=== PATIENT | female | born 1950 | race Caucasian/White ===

== ENCOUNTER 2016-09-29 12:22 | Emergency (ER) | payer OTHER ==
[2016-09-29 12:35] VITALS: BP 152/76
--- NOTE | 2016-09-29 14:21 | UC ---
Back Pain HPI - HPI Summary HPI Summary: The patient comes in today for: 1. Lower left back pain: Onset: 5 days ago. Palliative/provocative: Ibuprofen helped. Rest makes it better. Laying on her side helps. Quality: Sharp. Region: Lower left back. Severity: 4/10 Time: Constant. Associated symptoms: Previous treatment: Ibuprofen, rest, muscle relaxer (from ). Fevers: None. Unexpected weight loss: None. Bladder/bowel disfunction: None. Previous disease: None. Weakness or numbness: * - History of Current Complaint Chief Complaint: UCBackPain Stated Complaint: BACK PAIN Time Seen by Provider: 09/29/16 14:16 Hx Obtained From: Patient Hx Last Menstrual Period: "Years ago." ?: No - Allergies/Home Medications Allergies/Adverse Reactions: Allergies Allergy/AdvReac Type Severity Reaction Status Date / Time No Known Allergies Allergy Verified 08/21/15 12:25 PMH/Surg Hx/FS Hx/Imm Hx Previously Healthy: No Endocrine History Of: Denies: Diabetes, Thyroid Disease, Hyperthyroidism, Hypothyroidism, Dyslipidemia Cardiovascular History Of: Reports: Hypertension Denies: Cardiac Disorders, Pacemaker/ICD, Myocardial Infarction, Congestive Heart Failure, Atrial Fibrillation, Deep Vein Thrombosis, Bleeding Disorders Respiratory History Of: Denies: COPD, Asthma, Bronchitis, Pneumonia, Pulmonary Embolism GI/ History Of: Denies: Gastroesophageal Reflux, Ulcer, Gastrointestinal Bleed, Gall Bladder Disease, Kidney Stones, Diverticulitis, Renal Disease, Urosepsis Neurological History Of: Denies: TIA, CVA, Dementia, Seizures, Migraine Psychological History Of: Denies: Anxiety, Depression, Bipolar Disorder, Schizophrenia, Post Traumatic Stress Disorder Cancer History Of: Reports: Breast Cancer Denies: Lung Cancer, Colorectal Cancer, Prostate Cancer, Cervical Cancer Other History Of: Negative For: HIV, Hepatitis B, Hepatitis C, Anticoagulant Therapy - Surgical History Surgical History: Yes Surgery Procedure, Year, and Place: RIGHT MASTECTOMY - Family History Known Family History: Positive: Cardiac Disease, Hypertension - Social History Occupation: Retired Alcohol Use: Weekly Substance Use Type: None Smoking Status (MU): Never Smoked Tobacco Review of Systems Constitutional: Negative Skin: Negative Eyes: Negative ENT: Negative Respiratory: Negative Cardiovascular: Negative Gastrointestinal: Negative Genitourinary: Negative All Other Systems Reviewed And Are Negative: Yes Physical Exam Triage Information Reviewed: Yes Appearance: Well-Appearing, No Pain Distress - While sitting., Well-Nourished Vital Signs: Initial Vital Signs Temp 97.6 F 09/29/16 12:29 Pulse 61 09/29/16 12:29 Resp 16 09/29/16 12:29 BP 152/76 09/29/16 12:29 Pulse Ox 100 09/29/16 12:29 Vital Signs Reviewed: Yes Eyes: Positive: Conjunctiva Clear. Negative: Discharge ENT: Positive: Hearing grossly normal. Negative: Pharyngeal erythema, Nasal congestion, Nasal drainage, TM bulging, TM dull, TM red, Tonsillar swelling, Tonsillar exudate Dental: Negative: Gross Decay/Caries @, Dental Fracture @ Neck: Positive: Supple, Nontender, No Lymphadenopathy. Negative: Nuchal Rigidity Respiratory: Positive: Chest non-tender, Lungs clear, No respiratory distress, No accessory muscle use. Negative: Crackles, Wheezing Cardiovascular: Positive: RRR, No Murmur Abdomen Description: Positive: Nontender, No Organomegaly, Soft. Negative: Distended, Guarding, Peritoneal Signs, Pulsatile Mass Musculoskeletal: Positive: Other: - BAck: She has good backward extension, and limited forward flexion. There is limited left lateral flexion, and good right lateral flexion. There is no SLR and the DTR of the patellar and Achilles were 2+/2 x 2. There is focal tenderness to the upper left sacrum just inferior to the lumbar spine. Neurological: Positive: Alert, Muscle Tone Normal Psychological: Positive: Age Appropriate Behavior, Consolable Skin: Negative: rashes, breakdown Back Pain Course/Dx - Differential Dx/Diagnosis Provider Diagnoses: Lower left back strain. Discharge - Discharge Plan Condition: Stable Disposition: HOME Patient Education Materials: Low Back Strain (ED) Referrals: Nohemy Mckeon MD [Primary Care Provider] - 1 Week (Please see your primary care provider in a week to see how well you are doing. If you get worse, please be seen sooner in the ER or through us.)
== END 2016-09-29 14:52 | disposition home or self-care (01) ==
LOC: UCEAST 12:22
DX: S39.012A Strain of muscle, fascia and tendon of lower back, initial encounter (principal); X58.XXXA Exposure to other specified factors, initial encounter; Y93.9 Activity, unspecified; Y92.9 Unspecified place or not applicable
CPT/HCPCS: 99212; G0463

== ENCOUNTER 2019-03-21 14:02 | Observation (INO) | payer OTHER ==
[2019-03-21] MEDS ORDERED: Ondansetron INJ* 2 MG/ML VIAL IV ONE (14:49)
[2019-03-21] MEDS ORDERED: NS 0.9% 1000 ML** 1,000 ML IV ONE (14:49)
[2019-03-21] MEDS ORDERED: Meclizine TAB* 12.5 MG PO ONE (14:49)
[2019-03-21 15:23] LABS: ABS Lymphocytes 1.4 10^3/ul (1.0-4.8); ABS Monocytes 0.5 10^3/ul (0-0.8); Eosinophil % 0.1 %; Hematocrit 39 % (35-47); Hemoglobin 13.1 g/dL (12.0-16.0); Lymphocyte % 15.6 %; Mean Corpuscular HGB Conc 34 g/dL (31-36); Mean Corpuscular Hemoglobin 30 pg (27-31); Mean Corpuscular Volume 89 fL (80-97); Mean Platelet Volume 8.7 fL (7.4-10.4); Platelet Count 248 10^3/uL (150-450); Red Blood Count 4.37 10^6 /uL (3.70-4.87); Red Cell Distribution Width 13 % (10-15)
[2019-03-21 15:40] LABS: Albumin 4.5 g/dL (3.2-5.2); Albumin/Globulin Ratio 1.4 (1-3); BUN/Creatinine Ratio 36.2 (8-20); C Reactive Protein 10.21 mg/L (<8.01); Calcium 9.7 mg/dL (8.6-10.3); EGFR African American 101.8 (>60); EGFR Non-African American 84.1 (>60); Globulin 3.2 g/dL (2-4); Magnesium 1.6 mg/dL (1.9-2.7); Total Bilirubin 0.6 mg/dL (0.2-1.0); Total Protein 7.7 g/dL (6.4-8.9)
[2019-03-21 15:40] LABS: Urine Appearance Clear; Urine Bilirubin Negative (Negative); Urine Blood Negative (Negative); Urine Color Yellow; Urine Glucose Negative (Negative); Urine Ketones Trace (Negative); Urine Nitrite Negative (Negative); Urine Protein Negative (Negative); Urine Specific Gravity 1.016 (1.010-1.030); Urine Urobilinogen Negative (Negative)
[2019-03-21 16:02] LABS: TSH (Thyroid Stimulating Horm) 2.22 mcIU/mL (0.34-5.60)
[2019-03-21 16:05] LABS: Urine Benzodiazepine Screen None Detected (None Detect); Urine Opiates Screen None Detected (None Detect)
--- NOTE | 2019-03-21 16:24 | ED ---
Dizziness - HPI Summary HPI Summary: The patient is a 68 y/o F presenting to [facility] with a chief complaint of gradual onset dizziness starting a week ago. She states that previous to the dizziness starting, she had a URI that has resolved with dizziness that has persisted since. The dizziness occurs mostly with turning of the head to the right and sometimes to the left. She notes that she has hx of vertigo. Her symptoms are currently rated 4/10 in severity. She additionally c/o nausea without vomiting and slight nasal congestion. She denies headache, CP, palpitations, and SOB. Hx of HTN, rheumatoid arthritis. FHx of cardiac disease, HTN. Nonsmoker, weekly EtOH, no substance use. - History Of Current Complaint Chief Complaint: EDDizziness Stated Complaint: POSSIBLE VIRTIGO, WEAKNESS Time Seen by Provider: 03/21/19 14:36 Hx Obtained From: Patient Onset/Duration: Still Present, Gradually Timing: Days - one week Severity Initially: Mild Severity Currently: Moderate Character: Dizzy Aggravating Factor(s): Other - turning head from side to side especially on right Alleviating Factor(s): Rest Associated Signs And Symptoms: Positive: Nausea, Other: - POSITIVE: nasal congestion; NEGATIVE: headache. Negative: Vomiting, Chest Pain, SOB, Palpitations - Allergies/Home Medications Allergies/Adverse Reactions: Allergies Allergy/AdvReac Type Severity Reaction Status Date / Time No Known Allergies Allergy Verified 03/21/19 14:10 PMH/Surg Hx/FS Hx/Imm Hx Endocrine/Hematology History: Denies: Hx Anticoagulant Therapy, Hx Diabetes, Hx Thyroid Disease Cardiovascular History: Reports: Hx Hypertension Denies: Hx Congestive Heart Failure, Hx Deep Vein Thrombosis, Hx Hypercholesterolemia, Hx Myocardial Infarction, Hx Pacemaker/ICD Respiratory History: Denies: Hx Asthma, Hx Chronic Obstructive Pulmonary Disease (COPD), Hx Lung Cancer, Hx Pneumonia, Hx Pulmonary Embolism GI History: Denies: Hx Gall Bladder Disease, Hx Gastrointestinal Bleed, Hx Ulcer, Hx Urosepsis History: Denies: Hx Kidney Stones, Hx Renal Disease Musculoskeletal History: Reports: Hx Rheumatoid Arthritis Neurological History: Reports: Other Neuro Impairments/Disorders - vertigo Denies: Hx Dementia, Hx Migraine, Hx Seizures, Hx Transient Ischemic Attacks (TIA) Psychiatric History: Denies: Hx Anxiety, Hx Depression, Hx Schizophrenia, Hx Bipolar Disorder - Cancer History Cancer Type, Location and Year: BREAST CA, RECONSTRUCTIVE SURGERY Hx Chemotherapy: Yes - BREAST Hx Radiation Therapy: No - Surgical History Surgery Procedure, Year, and Place: RIGHT MASTECTOMY - Immunization History Immunizations Up to Date: Yes Infectious Disease History: No Infectious Disease History: Denies: Traveled Outside the [place] in Last 30 Days - Family History Known Family History: Positive: Cardiac Disease, Hypertension - Social History Alcohol Use: Weekly Hx Substance Use: No Substance Use Type: Reports: None Hx Tobacco Use: No Smoking Status (MU): Never Smoked Tobacco Do You Chew or Dip Tobacco: No Have You Chewed or Dipped Tobacco in the LAST YEAR: No Have You Smoked in the Last Year: No Review of Systems Positive: Other - nasal congestion Negative: Palpitations, Chest Pain Negative: Shortness Of Breath Positive: Nausea. Negative: Vomiting Neurological: Other - dizziness Negative: Headache All Other Systems Reviewed And Are Negative: Yes Physical Exam - Summary Physical Exam Summary: VITAL SIGNS: Reviewed. GENERAL: Patient is a well-developed and nourished female who is lying comfortable in the stretcher. Patient is not in any acute respiratory distress. HEAD AND FACE: No signs of trauma. No ecchymosis, hematomas or skull depressions. No sinus tenderness. EYES: PERRLA, EOMI x 2, No injected conjunctiva. Nystagmus is unable to be assessed because patient reports that if she attempts to follow my finger with her eyes, she will develop a migraine headache. EARS: Hearing grossly intact. Ear canals and tympanic membranes are within normal limits. MOUTH: Oropharynx within normal limits. NECK: Supple, trachea is midline, no adenopathy, no JVD, no carotid bruit, no c- spine tenderness, neck with full ROM. CHEST: Symmetric, no tenderness at palpation. LUNGS: Clear to auscultation bilaterally. No wheezing or crackles. CVS: Regular rate and rhythm, S1 and S2 present, no murmurs or gallops appreciated. ABDOMEN: Soft, non-tender. No signs of distention. No rebound, no guarding, and no masses palpated. Bowel sounds are normal. EXTREMITIES: FROM in all major joints, no edema, no cyanosis or clubbing. NEURO: Alert and oriented x 3. No acute neurological deficits. Speech is normal and follows commands. SKIN: Dry and warm. GCS: 15. Triage Information Reviewed: Yes Vital Signs On Initial Exam: Initial Vitals Temp Pulse Resp BP Pulse Ox 98.0 F 66 16 198/78 100 03/21/19 14:03 03/21/19 14:03 03/21/19 14:03 03/21/19 14:03 03/21/19 14:03 Vital Signs Reviewed: Yes - Yuly Coma Scale Best Eye Response: 4 - Spontaneous Best Motor Response: 6 - Obeys Commands Best Verbal Response: 5 - Oriented Coma Scale Total: 15 Diagnostics - Vital Signs Vital Signs Temp Pulse Resp BP Pulse Ox 03/21/19 14:03 98.0 F 66 16 198/78 100 - Laboratory Lab Results: Lab Results 03/21/19 03/21/19 03/21/19 Range/Units 15:08 15:08 15:08 WBC 9.0 (3.5-10.8) 10^3/uL RBC 4.37 (3.70-4.87) 10^6 /uL Hgb 13.1 (12.0-16.0) g/dL Hct 39 (35-47) % MCV 89 (80-97) fL MCH 30 (27-31) pg MCHC 34 (31-36) g/dL RDW 13 (10-15) % Plt Count 248 (150-450) 10^3/uL MPV 8.7 (7.4-10.4) fL Neut % (Auto) 78.1 % Lymph % (Auto) 15.6 % [place] % (Auto) 5.9 % Eos % (Auto) 0.1 % Baso % (Auto) 0.3 % Absolute Neuts (auto) 7.0 (1.5-7.7) 10^3/ul Absolute Lymphs (auto) 1.4 (1.0-4.8) 10^3/ul Absolute Monos (auto) 0.5 (0-0.8) 10^3/ul Absolute Eos (auto) 0.0 (0-0.6) 10^3/ul Absolute Basos (auto) 0.0 (0-0.2) 10^3/ul Absolute Nucleated RBC 0.0 10^3/ul Nucleated RBC % 0.0 Sodium 122 L (135-145) mmol/L Potassium 4.0 (3.5-5.0) mmol/L Chloride 90 L (101-111) mmol/L Carbon Dioxide 23 (22-32) mmol/L Anion Gap 9 (2-11) mmol/L BUN 25 H (6-24) mg/dL Creatinine 0.69 (0.51-0.95) mg/dL Est GFR ( Amer) 101.8 (>60) Est GFR (Non-Af Amer) 84.1 (>60) BUN/Creatinine Ratio 36.2 H (8-20) Glucose 128 H (70-100) mg/dL Lactic Acid 1.3 (0.5-2.0) mmol/L Calcium 9.7 (8.6-10.3) mg/dL Magnesium 1.6 L (1.9-2.7) mg/dL Total Bilirubin 0.60 (0.2-1.0) mg/dL AST 17 (13-39) U/L ALT 14 (7-52) U/L Alkaline Phosphatase 77 (34-104) U/L Troponin I 0.00 (<0.04) ng/mL C-Reactive Protein 10.21 H (<8.01) mg/L B-Natriuretic Peptide (<=100) pg/mL Total Protein 7.7 (6.4-8.9) g/dL Albumin 4.5 (3.2-5.2) g/dL Globulin 3.2 (2-4) g/dL Albumin/Globulin Ratio 1.4 (1-3) TSH 2.22 (0.34-5.60) mcIU/mL Urine Color Urine Appearance Urine pH (5-9) Ur Specific [place] (1.010-1.030) Urine Protein (Negative) Urine Ketones (Negative) Urine Blood (Negative) Urine Nitrate (Negative) Urine Bilirubin (Negative) Urine Urobilinogen (Negative) Ur Leukocyte Esterase (Negative) Urine Glucose (Negative) Urine Opiates Screen (None Detect) Ur Barbiturates Screen (None Detect) Ur Phencyclidine Scrn (None Detect) Ur Amphetamines Screen (None Detect) U Benzodiazepines Scrn (None Detect) Urine Cocaine Screen (None Detect) U Cannabinoids Screen (None Detect) 03/21/19 03/21/19 03/21/19 Range/Units 15:08 15:29 15:29 WBC (3.5-10.8) 10^3/uL RBC (3.70-4.87) 10^6 /uL Hgb (12.0-16.0) g/dL Hct (35-47) % MCV (80-97) fL MCH (27-31) pg MCHC (31-36) g/dL RDW (10-15) % Plt Count (150-450) 10^3/uL MPV (7.4-10.4) fL Neut % (Auto) % Lymph % (Auto) % [place] % (Auto) % Eos % (Auto) % Baso % (Auto) % Absolute Neuts (auto) (1.5-7.7) 10^3/ul Absolute Lymphs (auto) (1.0-4.8) 10^3/ul Absolute Monos (auto) (0-0.8) 10^3/ul Absolute Eos (auto) (0-0.6) 10^3/ul Absolute Basos (auto) (0-0.2) 10^3/ul Absolute Nucleated RBC 10^3/ul Nucleated RBC % Sodium (135-145) mmol/L Potassium (3.5-5.0) mmol/L Chloride (101-111) mmol/L Carbon Dioxide (22-32) mmol/L Anion Gap (2-11) mmol/L BUN (6-24) mg/dL Creatinine (0.51-0.95) mg/dL Est GFR ( Amer) (>60) Est GFR (Non-Af Amer) (>60) BUN/Creatinine Ratio (8-20) Glucose (70-100) mg/dL Lactic Acid (0.5-2.0) mmol/L Calcium (8.6-10.3) mg/dL Magnesium (1.9-2.7) mg/dL Total Bilirubin (0.2-1.0) mg/dL AST (13-39) U/L ALT (7-52) U/L Alkaline Phosphatase (34-104) U/L Troponin I (<0.04) ng/mL C-Reactive Protein (<8.01) mg/L B-Natriuretic Peptide 77 (<=100) pg/mL Total Protein (6.4-8.9) g/dL Albumin (3.2-5.2) g/dL Globulin (2-4) g/dL Albumin/Globulin Ratio (1-3) TSH (0.34-5.60) mcIU/mL Urine Color Yellow Urine Appearance Clear Urine pH 6.0 (5-9) Ur Specific [place] 1.016 (1.010-1.030) Urine Protein Negative (Negative) Urine Ketones Trace A (Negative) Urine Blood Negative (Negative) Urine Nitrate Negative (Negative) Urine Bilirubin Negative (Negative) Urine Urobilinogen Negative (Negative) Ur Leukocyte Esterase Negative (Negative) Urine Glucose Negative (Negative) Urine Opiates Screen None detected (None Detect) Ur Barbiturates Screen None detected (None Detect) Ur Phencyclidine Scrn None detected (None Detect) Ur Amphetamines Screen None detected (None Detect) U Benzodiazepines Scrn None detected (None Detect) Urine Cocaine Screen None detected (None Detect) U Cannabinoids Screen None detected (None Detect) Result Diagrams: 03/21/19 15:08 03/21/19 15:08 Lab Statement: Any lab studies that have been ordered have been reviewed, and results considered in the medical decision making process. - Radiology CXR Radiology Interpretation Completed By: Radiologist Summary of Radiographic Findings: No active cardiopulmonary disease. ED physician has reviewed this report. - CT Brain CT CT Interpretation Completed By: Radiologist Summary of CT Findings: 1. No acute intracranial pathology. 2. Mild chronic small vessel ischemic changes. 3. Sinusitis. ED physician has reviewed this report. - EKG 1513 Cardiac Rate: Bradycardia - 53 BPM EKG Rhythm: Sinus Bradycardia EKG Comparison: No Significant Change - Similar to previous EKG taken on 2017. Summary of EKG Findings: No ST elevations. Re-Evaluation - Re-Evaluation First Eval Re-Evaluation Time: 17:30 Comment: I discussed results with the patient and the need for admission at this time. Dizzy Course/Dx - Course Assessment/Plan: The patient is a 68 y/o F presenting to [facility] with a chief complaint of gradual onset dizziness starting a week ago. She states that previous to the dizziness starting, she had a URI that has resolved with dizziness that has persisted since. The dizziness occurs mostly with turning of the head to the right and sometimes to the left. She notes that she has hx of vertigo. Her symptoms are currently rated 4/10 in severity. She additionally c/ o nausea without vomiting and slight nasal congestion. She denies headache, CP, palpitations, and SOB. Hx of HTN, rheumatoid arthritis. FHx of cardiac disease, HTN. Nonsmoker, weekly EtOH, no substance use. Blood test results without any significant abnormality except for sodium of 122, chloride of 90, BUN of 25, glucose of 128, magnesium of 1.6, and CRP of 10.2. Urinalysis is negative for UTI. Head CT impression: No acute intracranial pathology. Chest x-ray impression : No acute pathology. In the ED course, the patient was given IV fluids, Zofran for slight nausea, and meclizine for dizziness. However, I believe that the dizziness and the current symptoms for the patient are secondary to the hyponatremia. At this point, I discussed my physical exam and findings with Dr. Nielsen from the hospitalist services who accepted the patient for admission. The patient is hemodynamically stable alert and oriented 3. - Diagnoses Provider Diagnoses: Hyponatremia, Dizziness - Provider Notifications Discussed Care Of Patient With: Ann Nielsen - hospitalist Time Discussed With Above Provider: 17:20 Instructed by Provider To: Other - I discussed the patient's case with Dr. Nielsen, and she accepts the patient for admission. Discharge - Sign-Out/Discharge Documenting (check all that apply): Patient Departure - Patient is accepted for admission by Dr. Nielsen. Patient Received Moderate/Deep Sedation with Procedure: No - Discharge Plan Condition: Stable Disposition: ADMITTED TO [facility] - Billing Disposition and Condition Condition: STABLE Disposition: Admitted to [facility] - Attestation Statements Document Initiated by Latoya: Yes Documenting Scribe: Lucy Flor Provider For Whom Latoya is Documenting (Include Credential): Dr. Justice He MD Scribe Attestation: ILucy scribed for Dr. Justice He MD on 03/21/19 at 2033. Scribe Documentation Reviewed: Yes Provider Attestation: The documentation as recorded by the Lucy barron accurately reflects the service I personally performed and the decisions made by me, Dr. Justice He MD Status of Scribe Document: Ready
[2019-03-21] MEDS ORDERED: Magnesium Sulfate 1 GM IV* 1 GM/100 ML BAG IV ONE (17:19)
[2019-03-21] MEDS ORDERED: Ondansetron INJ* 2 MG/ML VIAL IV PRN (18:33)
[2019-03-21] MEDS ORDERED: Meclizine TAB* 12.5 MG PO PRN (18:36)
[2019-03-21] MEDS ORDERED: NS 0.9% 1000 ML** 1,000 ML IV SCH (18:45)
[2019-03-21] MEDS ORDERED: Enoxaparin(*) 40 MG/0.4 ML SYR SUBCUT SCH (19:00)
[2019-03-21] MEDS: Acetaminophen TAB* 325 MG PO PRN (19:56)
--- NOTE | 2019-03-21 20:35 | HP ---
CC: Dr. Nohemy Mckeon * MEDICINE HISTORY AND PHYSICAL: DATE OF ADMISSION: 03/21/19 PROVIDER: Maia Aviles NP. ATTENDING PHYSICIAN: Dr. Frankie Perdomo * (dictated by Maia Aviles NP). PRIMARY CARE PROVIDER: Dr. Nohemy Mckeon. CHIEF COMPLAINT: Dizziness. HISTORY OF PRESENT ILLNESS: Ms. Parrish is a 68-year-old female who presents to the ER today with concern for progressively worsening dizziness. She reports chronic dizziness at baseline, stating that it waxes and wanes and that she does have lightheadedness at baseline. Approximately 1 week ago, she started to have onset of upper respiratory infectious symptoms. This includes nasal congestion, some ear fullness, ringing in the ears, and sore throat. She feels that it has slowly been improving, although she still endorses nasal congestion. She denies any fever or chills. She does endorse some nausea today , but denies chest pain, shortness of breath, cough, abdominal pain, vomiting, or diarrhea. She denies any hematuria, dysuria, focal weakness, sensory loss, or word- finding difficulties. Denies any joint pains, muscle pains, rashes, or lesions. She states that she has been eating and drinking as normal and states that she does drink a lot of water. Yesterday, she had less appetite than usual and states that she might have eaten and drank less than usual. Today, she noted that she was dizzy, but stated that it did not get any better. Usually, it lasts for about 15 to 20 minutes at maximum and then passes, but symptoms persisted. She came in for further evaluation. Here in the ER, she did receive normal saline and a dose of meclizine and states that her symptoms did improve; however, during the course of our conversation, she states that she started to feel more lightheaded and dizzy again. In the ER, she was found to have a sodium of 122, BUN of 25. She does state that she has a previously known history of hyponatremia that was evaluated by her physician, and she says she was told to eat salt. She has not heard anything new regarding this. She also reports that she has episodes of hypoglycemia. Her blood sugar was checked during our conversation and was 94. She also describes a fainting episode that happened at 's over a year and a half ago where she felt herself getting woozy and actually fainted in the store. Given her symptoms, Hospital Medicine was consulted for admission. PAST MEDICAL HISTORY: Includes hypertension; rheumatoid arthritis; breast cancer, status post right mastectomy; GERD; and hyperlipidemia. HOME MEDICATIONS: Include: 1. Cholecalciferol 1000 units. 2. Irbesartan 75 mg daily. ALLERGIES: No known allergies. FAMILY HISTORY: Reports a family history of cardiac disease and hypertension. SOCIAL HISTORY: She reports weekly alcohol use. Denies any history of substance use or tobacco use. She lives with her , Marcelo Parrish, who is also her surrogate decision maker and healthcare proxy. REVIEW OF SYSTEMS: As per HPI. All other systems are negative unless included in the HPI. PHYSICAL EXAMINATION GENERAL: This is a well-developed, well-nourished, older female seen sitting up in the ED stretcher, in no acute distress. She is pleasant and conversive. Speech is fluent. VITAL SIGNS: Temperature 98.0, pulse rate 64, respiratory rate 17, blood pressure 159/72, and O2 saturation is 99% on room air. HEENT: Head is atraumatic, normocephalic. Face is symmetrical. Pupils are equal and round. Sclerae are anicteric. Unable to assess nystagmus or full extraocular movements as the patient states that eye movements cause migraine headaches and that she is unable to fully do so and defines with part of the exam. Oral mucosa is moist. There is no oropharyngeal erythema or exudate. NECK: Supple with full range of motion. No lymphadenopathy appreciated. No JVD noted. LUNGS: Clear to auscultation bilaterally. CARDIAC: Normal S1, S2 heart sounds with regular rate and rhythm. ABDOMEN: Soft, nontender, nondistended with no rebound or guarding. Bowel sounds are within normal limits and present times all 4 quadrants. EXTREMITIES: Without edema. Distal pulses are present and 2+. MUSCULOSKELETAL: There is no clubbing or cyanosis. Full range of motion is demonstrated in all 4 extremities. NEURO: Alert and oriented x3. No focal deficits noted. Speech is fluent. She is able to follow commands. PSYCH: There is mild anxiety, but affect is appropriate. SKIN: Appears grossly intact. DIAGNOSTIC STUDIES/LAB DATA: CBC: WBC 9.0, hemoglobin 13.1, hematocrit 39, platelet count 248. CMP: Sodium 122, potassium 4.0, chloride 90, carbon dioxide 23, BUN 25, creatinine 0.69, glucose 128, lactic acid 1.3, calcium 9.7, magnesium 1.6. Total bilirubin 0.6, AST 17, ALT 14, alk phos 77. Troponin 0.00 , CRP 10.21, BNP 77. TSH 2.22. Urinalysis shows trace ketones. Urine toxicology is unremarkable. EKG shows sinus bradycardia with a rate of 53 beats per minute. No significant change. No ST or T-wave changes. CT of the brain shows no acute intracranial pathology. Sinusitis. Chronic multifocal ischemic changes. Old medical records were reviewed. ASSESSMENT AND PLAN: This is a 68-year-old female presenting today with concern for dizziness, found to have hyponatremia and bradycardia while here in the ER. She will be admitted under OBV status. Plan is as follows: 1. Dizziness. This is chronic in nature per the patient's report, although worsened over the past week and particularly today. This may represent labyrinthitis. She does have acute sinus infection, although this does seem to be improving per her report. We will continue with supportive care. She is receiving a liter of fluid, and we will give her another liter of fluid. She received 1 dose of meclizine with reported improvement and we will continue with p.r.n. meclizine and monitor her on telemetry to evaluate for any arrhythmias. She does have bradycardia here in the ER, appears to be asymptomatic, but states that she has had bradycardia for quite some time. I did note that at some point she is in the 40s and so we will continue to monitor her and see if some of her dizziness may represent symptomatic bradycardia. 2. Hyponatremia. This also appears to be chronic, although worsened recently. She does endorse decreased p.o. intake over the past day or so, and her also does endorse this. She is receiving a liter of fluid. We will give her an additional liter, repeat her BMP in the morning and continue to monitor. I have added on osmolality studies as well as a urine sodium. 3. Hypomagnesemia. This has been replaced in the ER. 4. Hypertension. Continue home irbesartan. 5. FEN. She is ordered a heart-healthy diet. 6. DVT prophylaxis. She is rated as a high risk and she will be on subcu Lovenox and SCDs. 7. Code status. She is a full code. 8. Disposition. OBV admission. Anticipate discharge to home. TIME SPENT: Approximately 60 minutes was spent on this admission with more than half that time spent [id number] with the patient obtaining history and physical, performing physical examination, and reviewing the plan of care. Plan of care was also reviewed with my attending, Dr. Perdomo, who is in agreement. MAIA AVILES, GLOBAL ACCOUNT DIRECTOR [id number]/CPS #: [id number] JANES
[2019-03-21] MEDS ORDERED: Artificial Tears* 15 ML BTL BOTH EYES PRN (22:55)
[2019-03-21] MEDS ORDERED: Losartan TAB* 25 MG PO ONE (22:55)
[2019-03-21] MEDS ORDERED: Dextran 70/Hypromellose Tears Eye Drops 15 ml BTL (for Artificials Tears) BOTH EYES PRN (23:00)
[2019-03-21 23:41] LABS: BUN/Creatinine Ratio 30.2 (8-20); Calcium 8.9 mg/dL (8.6-10.3); EGFR Non-African American 93.4 (>60); Potassium 4.1 mmol/L (3.5-5.0)
[2019-03-22] MEDS: Acetaminophen TAB* 325 MG PO PRN (04:07)
[2019-03-22 06:45] LABS: ABS Eosinophils 0.1 10^3/ul (0-0.6); ABS Monocytes 0.5 10^3/ul (0-0.8); ABS Neutrophils 3.7 10^3/ul (1.5-7.7); Eosinophil % 0.8 %; Hematocrit 34 % (35-47); Hemoglobin 12.2 g/dL (12.0-16.0); Lymphocyte % 31.1 %; Mean Corpuscular HGB Conc 35 g/dL (31-36); Mean Corpuscular Hemoglobin 32 pg (27-31); Mean Corpuscular Volume 89 fL (80-97); Mean Platelet Volume 9.6 fL (7.4-10.4); Platelet Count 200 10^3/uL (150-450); Red Blood Count 3.85 10^6 /uL (3.70-4.87); Red Cell Distribution Width 13 % (10-15); White Blood Count 6.3 10^3/uL (3.5-10.8)
[2019-03-22 07:08] LABS: BUN/Creatinine Ratio 25.9 (8-20); Calcium 8.8 mg/dL (8.6-10.3); EGFR African American 124.4 (>60); EGFR Non-African American 102.8 (>60); Potassium 4.1 mmol/L (3.5-5.0)
[2019-03-22 08:32] VITALS: BP 150/60
[2019-03-22] MEDS ORDERED: Cholecalciferol TAB* 1000 UNITS PO SCH (09:00)
[2019-03-22] MEDS ORDERED: Losartan TAB* 25 MG PO SCH (09:00)
--- NOTE | 2019-03-22 19:20 | DS ---
AMENDED REPORT NOW INCLUDES DESIGNATED COSIGNER CC: Dr. Nohemy Mckeon * DISCHARGE SUMMARY: DATE OF ADMISSION: 03/21/19 DATE OF DISCHARGE: 03/22/19 PRIMARY CARE PROVIDER: Dr. Nohemy cMkeon. ATTENDING PHYSICIAN: Dr. Tejinder Grimes * (dictated by Janee Bedoya NP). PRIMARY DIAGNOSES: 1. Dizziness secondary to viral sinusitis. 2. Hyponatremia. 3. Hypertensive urgency. SECONDARY DIAGNOSES: 1. Rheumatoid arthritis. 2. Gastroesophageal reflux disease. 3. Hyperlipidemia. STUDIES WHILE IN THE HOSPITAL: 1. EKG on 03/21/19 shows sinus bradycardia with a rate of 53, QTc 395, small Q - waves present in 1 and aVL. This is consistent with previous EKG on file. 2. Brain CT on 03/21/19 reads as, no acute intracranial pathology. Mild chronic small vessel ischemic changes. Sinusitis. 3. Chest x-ray on 03/21/19 reads as, no active cardiopulmonary disease. HISTORY OF PRESENT ILLNESS/HOSPITAL COURSE: Ms. Parrish is a 68-year-old female with past medical history of hypertension, RA, breast cancer, status post mastectomy, GERD, and hyperlipidemia, who presented to the emergency room on 03/21/19 with complaints of dizziness. Please see the history and physical by Talita Armando NP for complete summary of the events leading up to this hospitalization. In short, the patient reported that 1 week prior, she had an upper respiratory infection. Then, on the day of admission, the patient noted severe dizziness. She does report some chronic dizziness, although this was significantly worse than normal and was not resolving as it usually does, so she presented to the emergency room. In the emergency room, she had imaging as noted above. She had lab work, which was remarkable for a sodium of 122 and magnesium of 1.6. Because of the patient's hyponatremia, bradycardia, and dizziness, she was admitted by the hospitalist service. The patient had an uneventful night. She did receive 1 dose of meclizine with improvement in symptoms. She was monitored on telemetry without any evidence of arrhythmias, although has remained somewhat bradycardic with heart rate in the high 50s. Sodium improved this morning to 130 and it appears that hyponatremia is somewhat of a chronic issue for her. She did have a sodium in 2018 of 128 and does report that she has been told before that she had low sodium, so I suspect she is near her baseline at this point. Blood pressures were initially high in the emergency room, though did come down, and at this point, systolic pressures were in the 140s to 150s. She does continue to report some mild dizziness but has been up ambulating to the bathroom without difficultly. She does report maxillary sinus pressure and some ear fullness. She denies any nasal drainage. On exam, she has no focal neurological deficit. Her heart has a regular rhythm. Lungs are clear to auscultation. Physical assessment is otherwise benign. Ms. Parrish is stable for discharge today. Vital signs are as follows: Temp 98.0, heart rate 58, respiratory rate 16, oxygen saturation 96% on room air, blood pressure 150/60. DISCHARGE MEDICATIONS: New mediations: 1. Loratadine 10 mg p.o. daily. 2. Meclizine 25 mg p.o. q.8 hours p.r.n. dizziness. Continued medications: 1. Cholecalciferol 1000 units p.o. daily. 2. Irbesartan 75 mg p.o. daily. DISCHARGE PLAN: Ms. Parrish will be discharged home. Activity will be as tolerated. The patient has been advised to use caution with ambulation, especially if she is feeling dizzy, and she should have assistance by her while ambulating if she is feeling dizzy. Diet will be regular as tolerated. She does not have any dietary sodium restrictions. Medications are noted above. I have prescribed the patient a small supply of meclizine to use as needed for dizziness. Additionally, I have advised her that she can take loratadine or cetirizine as allergy symptoms may be contributing to her sinus pain and ear fullness because there is no nasal discharge, and these symptoms began after an upper respiratory infection. There is no evidence to support bacterial sinusitis at this time, and so this will be treated as viral sinusitis with supportive care. I have advised her that she can use saline rinses as needed. The patient should follow up with her PCP in 4 to 7 days. She will also need to have her BMP rechecked. I did offer to write an order for this, but the patient states that she will have this lab work done at her PCP's office when she goes in. I would recommend that BMP being rechecked also in the next 4 to 7 days. She should return to the emergency room or nearest hospital for any worsening of symptoms, shortness of breath, lightheadedness, dizziness, chest discomfort, high fever, chills, night sweats, loss of consciousness, or any other worrisome signs or symptoms. DISCHARGE CONDITION: Stable. DISCHARGE DISPOSITION: Home. This is a summarized report of a complex medical history and hospital stay. For further details, please see the entire medical record. TIME SPENT: Approximately 40 minutes were spent on this discharge. JANEE BEDOYA, COLLET DRILLER [id number]/CPS #: [id number] JANES
[2019-03-23] MEDS ORDERED: Cetirizine* 10 MG TAB PO SCH (09:00)
== END 2019-03-22 11:30 | disposition home or self-care (01) ==
LOC: ED 14:02 → MEDTELE 18:20
PROVIDERS: ADMIT Internal Medicine; ATTEND Internal Medicine
DX: J32.9 Chronic sinusitis, unspecified (principal); R42 Dizziness and giddiness; E87.1 Hypo-osmolality and hyponatremia; I16.0 Hypertensive urgency; M06.9 Rheumatoid arthritis, unspecified; K21.9 Gastro-esophageal reflux disease without esophagitis; E78.5 Hyperlipidemia, unspecified; Z79.899 Other long term (current) drug therapy
CPT/HCPCS: 36415; 70450; 71046; 80048; 80053; 80307; 81003; 83605; 83735; 83880; 83930; 83935; 84300; 84443; 84484; 85025; 86140; 93005; 96361; 96365; 96372; 96374; 99284; A9270-GY; G0378; J1650; J2405; J3475

== ENCOUNTER 2019-07-31 06:47 | Day surgery (SDC) | payer OTHER ==
[2019-07-31] MEDS ORDERED: fentaNYL* 50 MCG/ML 2 ML VIAL (100 MCG VIAL) ONE (08:32)
[2019-07-31] MEDS ORDERED: Midazolam* 1 MG/ML 2 ML VIAL (2 MG) ONE (08:32)
[2019-07-31 09:36] VITALS: BP 150/60
--- NOTE | 2019-07-31 10:01 | OP ---
DATE OF OPERATION: 07/31/2019. DATE OF : 1950. SURGEON: Levi Kurtz M.D. PREOPERATIVE DIAGNOSIS: Cataract right eye. POSTOPERATIVE DIAGNOSIS: Cataract right eye. OPERATIVE PROCEDURE: Extracapsular cataract extraction with intraocular lens implant right eye. PROCEDURE: The patient was brought to the operating room after being given 1/2 % Alcaine with epinephrine drops in the preoperative area. The eye was prepped and draped in the usual sterile fashion. Sterile drape and eyelid speculum were placed. Again, topical 1/2% Alcaine with epinephrine was given. A paracentesis incision was made at the 9 o'clock position with the No.75 blade. Clear cornea incision 2.2 x 2.2-mm was created at the 12 o'clock position starting at the anterior limbus using the 2.2-mm keratome. The anterior chamber was irrigated with 0.4 mL of 1% non-preservative intracameral lidocaine and filled with DisCoVisc. A capsulorrhexis was completed using the cystotome and the Utrata forceps. Hydrodissection was performed with balanced salt solution. The lens nucleus was removed with the Phacoemulsification handpiece without incident. Cortex was removed with the irrigation-aspiration handpiece. The capsular bag was re-inflated using DisCoVisc and an [id number] 18.5 implant was inserted with the shooter, oriented to the 65 degree meridian. All measurements were confirmed with ORA. The irrigation-aspiration handpiece was used to remove all residual DisCoVisc. The eye was refilled with balanced salt solution and the wound checked and found to be watertight. Topical Maxitrol drops were given. [id number]/[facility] #: [id number] [facility] HEALTH NETWORKAndrew
[2019-07-31] MEDS ORDERED: Cyclopentolate 1% OPTH.SOL* 2 ML BTL ONE (14:53)
[2019-07-31] MEDS ORDERED: Lidocaine 2% w/ EPI 1:200,000* 20 ML SDV VIAL ONE (14:53)
[2019-07-31] MEDS ORDERED: Ketorolac 0.5% OPHTH (NF) 0.5 % 5 ML BTL ONE (14:53)
[2019-07-31] MEDS ORDERED: Proparacaine 0.5% OPHTH.SOL* 15 ML BTL ONE (14:53)
[2019-07-31] MEDS ORDERED: Phenylephrine OPHTH SOL 2.5%* 2 ML ONE (14:53)
[2019-07-31] MEDS ORDERED: Lidocaine 1% MPF ** 5 ML VIAL ONE (14:53)
[2019-07-31] MEDS ORDERED: Neomycin/Polymy/Dex OPTH.SUSP* MAXITROL 0.1% 5 ML ONE (14:53)
[2019-07-31] MEDS ORDERED: acetaZOLAMIDE TAB* 250 MG ONE (14:53)
[2019-07-31] MEDS ORDERED: Povidone Iodine 5% OPTH* 30 ML BTL ONE (14:53)
== END 2019-07-31 09:57 | disposition home or self-care (01) ==
LOC: OREAST 06:47
PROVIDERS: ATTEND Specialist
DX: H25.11 Age-related nuclear cataract, right eye (principal); I10 Essential (primary) hypertension; F41.9 Anxiety disorder, unspecified; Z87.891 Personal history of nicotine dependence; Z85.3 Personal history of malignant neoplasm of breast; Z90.13 Acquired absence of bilateral breasts and nipples; Z92.21 Personal history of antineoplastic chemotherapy
CPT/HCPCS: A9270-GY; J2250; J3010; V2787

== ENCOUNTER 2019-08-07 06:51 | Day surgery (SDC) | payer OTHER ==
[~2019-08-07 06:51] MED LIST: Acetaminophen TAB* 325 MG PO PRN; Buffered Lidocaine 1% SYRIN* 1 ML/SYRINGE INTRADERM ONE
[2019-08-07] MEDS ORDERED: Lidocaine 1% MPF ** 5 ML VIAL ONE (08:01)
[2019-08-07] MEDS ORDERED: Neomycin/Polymy/Dex OPTH.SUSP* MAXITROL 0.1% 5 ML ONE (08:01)
[2019-08-07] MEDS ORDERED: Proparacaine 0.5% OPHTH.SOL* 15 ML BTL ONE (08:01)
[2019-08-07] MEDS ORDERED: Phenylephrine OPHTH SOL 2.5%* 2 ML ONE (08:01)
[2019-08-07] MEDS ORDERED: acetaZOLAMIDE TAB* 250 MG ONE (08:01)
[2019-08-07] MEDS ORDERED: Lidocaine 2% w/ EPI 1:200,000* 20 ML SDV VIAL ONE (08:01)
[2019-08-07] MEDS ORDERED: Ketorolac 0.5% OPHTH (NF) 0.5 % 5 ML BTL ONE (08:01)
[2019-08-07] MEDS ORDERED: Povidone Iodine 5% OPTH* 30 ML BTL ONE (08:01)
[2019-08-07] MEDS ORDERED: Cyclopentolate 1% OPTH.SOL* 2 ML BTL ONE (08:01)
[2019-08-07] MEDS ORDERED: Midazolam* 1 MG/ML 2 ML VIAL (2 MG) ONE ×2 (08:41→09:06)
[2019-08-07 09:39] VITALS: BP 132/84
--- NOTE | 2019-08-07 10:29 | OP ---
DATE OF OPERATION: 08/07/2019. DATE OF : 1950. SURGEON: Levi Kurtz M.D. PREOPERATIVE DIAGNOSIS: Cataract left eye. POSTOPERATIVE DIAGNOSIS: Cataract left eye. OPERATIVE PROCEDURE: Extracapsular cataract extraction with intraocular lens implant left eye. PROCEDURE: The patient was brought to the operating room after being given 1/2% Alcaine with epineph rine drops in the preoperative area. The eye was prepped and draped in the usual sterile fashion. S terile drape and eyelid speculum were placed. Again, topical 1/2% Alcaine with epinephrine was given . A paracentesis incision was made at the 3 o'clock position with the No.75 blade. Clear cornea inc ision 2.2 x 2.2-mm was created at the 6 o'clock position starting at the anterior limbus using the 2. 2-mm keratome. The anterior chamber was irrigated with 0.4 mL of 1% non-preservative intracameral li docaine and filled with DisCoVisc. A capsulorrhexis was completed using the cystotome and the Utrata forceps. Hydrodissection was performed with balanced salt solution. The lens nucleus was removed wi th the Phacoemulsification handpiece without incident. Cortex was removed with the irrigation-aspira tion handpiece. The capsular bag was re-inflated using DisCoVisc and an [id number] 19 implant was insert ed with the shooter, oriented to the 60 degree meridian. The irrigation-aspiration handpiece was use d to remove all residual DisCoVisc. The eye was refilled with balanced salt solution and the wound c hecked and found to be watertight. Topical Maxitrol drops were given. [id number]/[facility] #: [id number]
== END 2019-08-07 09:30 | disposition home or self-care (01) ==
LOC: OREAST 06:51
PROVIDERS: ATTEND Specialist
DX: H25.12 Age-related nuclear cataract, left eye (principal); I10 Essential (primary) hypertension; Z85.3 Personal history of malignant neoplasm of breast; F41.9 Anxiety disorder, unspecified
CPT/HCPCS: A9270-GY; J2250; V2787